=== PATIENT | female | born 1970 | race Caucasian/White ===

== ENCOUNTER 2019-05-09 07:44 | Emergency (ER) | payer SELFPAY, OTHER ==
[2019-05-09] MEDS: FLUORESCEIN STRIP LEFT EYE (08:57)
[2019-05-09] MEDS: TETRACAINE 0.5% 4 ML OPH LEFT EYE (08:57)
== END 2019-05-09 09:58 | disposition home or self-care (01) ==
LOC: FTE 07:44
DX: H57.12 Ocular pain, left eye (principal); H57.89 Other specified disorders of eye and adnexa
CPT/HCPCS: 99283